=== PATIENT | female | born 1985 | race Caucasian/White ===

== ENCOUNTER 2017-10-07 00:42 | Emergency (ER) | payer SELFPAY ==
[2017-10-07 01:25] VITALS: BP 117/77
== END 2017-10-07 02:20 | disposition left against medical advice (07) ==
LOC: ED 00:42
DX: S05.32XA Ocular laceration without prolapse or loss of intraocular tissue, left eye, initial encounter (principal); Z53.21 Procedure and treatment not carried out due to patient leaving prior to being seen by health care provider; X58.XXXA Exposure to other specified factors, initial encounter; Y93.89 Activity, other specified; Y92.89 Other specified places as the place of occurrence of the external cause; Y99.8 Other external cause status

== ENCOUNTER 2017-10-07 10:27 | Emergency (ER) | payer OTHER ==
[2017-10-07 11:20] VITALS: BP 123/69
[2017-10-07] MEDS ORDERED: BOOSTRIX IM ONE (11:54)
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
[2017-10-07] MEDS ORDERED: TRIPLE ANTIBIOTIC TP ONE (12:47)
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
[2017-10-07] MEDS ORDERED: TYLENOL PO ONE (12:59)
[2017-10-07 13:24] LABS: HCG Qualitative,Urine Negative (Negative)
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
== END 2017-10-07 14:19 | disposition home or self-care (01) ==
LOC: ED 10:27
DX: S01.81XA Laceration without foreign body of other part of head, initial encounter (principal); Y08.89XA Assault by other specified means, initial encounter; Y93.89 Activity, other specified; Y92.89 Other specified places as the place of occurrence of the external cause; Y99.8 Other external cause status
CPT/HCPCS: 70450; 81025; 90471; 90715; A6250